=== PATIENT | male | born 1990 | race Caucasian/White ===

== ENCOUNTER 2016-11-27 23:57 | Emergency (ER) | payer BC ==
[2016-11-28 00:28] VITALS: BP 144/80
[2016-11-28] MEDS ORDERED: Ketorolac INJ* 60 MG/2 ML VIAL IM ONE (00:42)
--- NOTE | 2016-11-28 00:42 | ED ---
Lower Extremity - HPI Summary HPI Summary: Patient presents to the ED after sustaining a fall and inverting right ankle about 5 hours ago. Now presenting with pain, swelling and tingling in toes. Denies color change. Denies previous injury. Patient is unable to plantar flex or dorsiflex at the ankle, unable to rotate. Denies LOC or other injuries. Denies knee pain or lower leg pain. Pulses intact bilaterally. - History of Current Complaint Chief Complaint: EDExtremityLower Stated Complaint: RT ANKLE INJURY Time Seen by Provider: 11/28/16 00:29 Hx Obtained From: Patient Mechanism Of Injury: Fall From A Standing Position Onset of Pain: Immediate Onset/Duration: Hours Severity Initially: Moderate Severity Currently: Moderate Pain Intensity: 4 Pain Scale Used: 0-10 Numeric Timing: Constant Location: Is Discrete @ - lateral side of right ankle Character Of Pain: Sharp Associated Signs And Symptoms: Positive: Swelling Aggravating Factor(s): Ambulation, Movement, Weight Bearing Alleviating Factor(s): Rest, Elevation Able to Bear Weight: No - Risk Factors Gout Risk Factors: Negative DVT Risk Factors: Negative Septic Arthritis Risk Factor: Negative - Allergies/Home Medications Allergies/Adverse Reactions: Allergies Allergy/AdvReac Type Severity Reaction Status Date / Time No Known Allergies Allergy Verified 11/28/16 00:27 PMH/Surg Hx/FS Hx/Imm Hx Previously Healthy: Yes Infectious Disease History: No Infectious Disease History: Denies: Traveled Outside the [place] in Last 30 Days - Social History Occupation: Employed Full-time Lives: With Family Alcohol Use: None Hx Substance Use: No Substance Use Type: Reports: Cocaine Hx Tobacco Use: No Review of Systems Constitutional: Negative Eyes: Negative Cardiovascular: Negative Respiratory: Negative Positive: Arthralgia - right ankle, Decreased ROM Skin: Negative Neurological: Negative Psychological: Normal All Other Systems Reviewed And Are Negative: Yes Physical Exam Triage Information Reviewed: Yes Vital Signs On Initial Exam: Initial Vitals Temp Pulse Resp BP Pulse Ox 98.4 F 60 16 144/80 99 11/28/16 00:20 11/28/16 00:20 11/28/16 00:20 11/28/16 00:20 11/28/16 00:20 Vital Signs Reviewed: Yes Appearance: Positive: Well-Appearing, No Pain Distress, Well-Nourished Skin: Positive: Warm, Skin Color Reflects Adequate Perfusion Head/Face: Positive: Normal Head/Face Inspection Eyes: Positive: Normal, EOMI, Conjunctiva Clear ENT: Positive: Hearing grossly normal Neck: Positive: Supple, Nontender, No Lymphadenopathy Respiratory/Lung Sounds: Positive: Clear to Auscultation Cardiovascular: Positive: Normal Musculoskeletal: Positive: Limited @ - rigth inversion and eversion of ankle d/ t pain, pain with dorsiflexion and plantarflexion, swelling over lateral right ankle., Other - anterior drawer test positive, talar tilt test negative, kang negative. Neurological: Positive: Normal, Sensory/Motor Intact Psychiatric: Positive: Normal Diagnostics - Vital Signs Vital Signs Temp Pulse Resp BP Pulse Ox 11/28/16 00:20 98.4 F 60 16 144/80 99 - Laboratory Lab Statement: Any lab studies that have been ordered have been reviewed, and results considered in the medical decision making process. - Radiology No standard instances Xray Interpretation: No Acute Changes Radiology Interpretation Completed By: ED Physician Lower Extremity Course/Dx - Course Course Of Treatment: Patient sent to xray. xray read by MD Weaver. No acute findings. Patient wrapped with ORTEGA, crutches given at [facility]. Patient dc'd with 2 of oxycodone. Follow up with [facility]. - Diagnoses Differential Diagnosis/HQI/PQRI: Positive: Contusion, Dislocation, Sprain, Strain Provider Diagnoses: Moderate left ankle sprain Discharge - Discharge Plan Condition: Stable Disposition: HOME Patient Education Materials: Ankle Sprain (ED) Referrals: Perfecto Hidalgo MD [Medical Doctor] - Additional Instructions: Follow up with ortho physician at the end of this week or beginning of next week. Call for appt tomorrow. Crutches as needed for discomfort. Soft Tissue Injuries Notes to patient from your provider: Protect the area. For your comfort level, do not bear weight, pull or push until you can injury is somewhat healed. This may involve the need for immobilization or crutches for a period of time. Rest the involved area, but not too long. You may need to be off your injury for some time to allow for healing, however excessive immobilization of joints can lead to stiffness and delay healing time. Early mobilization is encouraged if it is pain-free. Ice. Not directly on the skin. Cover with a towel. Apply ice no more than 30 minutes at a time Compression: You may use an ortega wrap bandage over the injury to decrease swelling. Again, this should be limited and be taken off periodically to encourage early range of motion and mobilization. Elevate: Try to elevate the injured area above the heart whenever possible. Rehabilitation: Follow up with an orthopedic physician. They may encourage a short period of rehabilitation of the injury to limit the likelihood of permanent joint stiffness and instability.
[2016-11-28] MEDS ORDERED: oxyCODONE/Acetamin 5/325 MG* TAB PO ONE (01:18)
--- NOTE | 2016-11-28 08:01 | RAD ---
INDICATION: Ankle pain after basketball injury COMPARISON: None. TECHNIQUE: 3 views of the right ankle were obtained. FINDINGS: There is soft tissue swelling overlying the fibular malleolus. The bones are normal alignment. Joint spaces appear maintained. No fracture is seen. IMPRESSION: SOFT TISSUE SWELLING OVERLYING THE FIBULAR MALLEOLUS WITHOUT RADIOGRAPHICALLY APPARENT UNDERLYING FRACTURE OR DISLOCATION. If the patient's symptoms persist, follow-up imaging is recommended.
== END 2016-11-28 01:34 | disposition home or self-care (01) ==
LOC: ED 23:57
DX: S93.402A Sprain of unspecified ligament of left ankle, initial encounter (principal); W19.XXXA Unspecified fall, initial encounter; Y92.9 Unspecified place or not applicable; Y93.67 Activity, basketball
CPT/HCPCS: 96372; 99282; A9270-GY; J1885